=== PATIENT | male | born 1975 | race Caucasian/White ===

== ENCOUNTER 2024-11-25 12:26 | Outpatient (CLI) | payer BC, SELFPAY ==
--- NOTE | 2024-11-25 13:00 | MR_ITS ---
[address] [address] Phone:?[phone] Fax:?[phone] Referring Physician Information: Master Dawkins M.D. [id number] [id number] Phone:?[phone] Fax:?[phone] Patient:Gregory Phillip D.O.B:?1975 Sex:?Male Phone:? [facility] MRN:?[id number] Exam Date:?11/25/2024 EXAM: MRI OF THE RIGHT SHOULDER CLINICAL INFORMATION: The patient is a 49-year-old with right shoulder pain. Evaluate rotator cuff. PRIOR SURGERY: None reported. COMPARISON STUDIES: Comparison is made to prior radiographs dated 10/23/2024. TECHNICAL INFORMATION: Imaging was performed on a high-field, 1.5 Kiara MR scanner. Coronal proton-density, T2, and STIR imaging of the right shoulder was performed in addition to axial proton-density and T2 imaging. Sagittal proton- density and sagittal T2 imaging was also produced. FINDINGS: Articular/Extraarticular collections: Effusion: Mild to moderate. Subacromial/subdeltoid: There is moderate loculated fluid is seen within the subacromial/subdeltoid bursa, with low signal intensity debris, noted to best advantage on coronal series 5 image 11, axial series 4 image 19, and on sagittal series 9 image 8. The findings are in keeping with moderate bursitis, however the findings may also relate to bursal hemorrhage. Subcoracoid: No evidence for bursitis. Osseous structures: Proximal humerus: Increased fat-suppressed signal intensity can be seen involving the greater tuberosity region, in keeping with reactive edema or bony contusion. No well-defined fracture is seen. The findings may be related to the bursitis or bursal collection described above. No evidence for Hill-Sachs or reverse Hill-Sachs lesion is identified. Glenoid: No acute bony abnormality of the glenoid fossa or glenoid neck can be seen. Acromioclavicular joint: Mild. Coracoacromial arch: Acromion morphology: Type II. There is a potentially symptomatic os acromiale with moderate marrow edema within the acromion, seen to best advantage on coronal series 5 image 15 and on axial series 4 image 10. The findings may also relate to an acromial fracture. Clinical correlation is required. Acromiohumeral space: Moderately narrowed. Coracohumeral space: Within normal limits. Rotator cuff and deltoid: Supraspinatus: Moderate changes of supraspinatus tendinosis can be seen with partial-thickness superficial surface tearing and fraying involving up to 30% of the tendon thickness. No full-thickness tearing or retraction of the supraspinatus tendon can be seen. Strain of the supraspinatus muscle belly and myotendinous junction can be seen without evidence for atrophic change. Infraspinatus: Mild infraspinatus tendinosis can be seen. There is no evidence for full or partial-thickness tearing. No atrophic changes of the infraspinatus muscle belly are identified. Teres minor: No evidence for tendinosis, tearing, or associated muscle belly atrophy. Subscapularis: Mild subscapularis tendinosis can be seen. There is no evidence for full or partial-thickness tearing. No atrophic changes of the subscapularis muscle belly are noted. Deltoid: There is increased fat-suppressed signal intensity involving the lateral and anterior aspects of the deltoid musculature. The findings may relate to andi-based deltoid sprain but may also relate to myositis secondary to inflammatory changes from adjacent to subacromial bursitis. No discrete tearing of the deltoid is identified. Biceps tendon: The intra-articular and biceps sulcus portions of the biceps tendon are normal. There is no evidence for rupture, dislocation, or subluxation. Glenohumeral joint and labrum: Articular Cartilage: No definite chondral injuries along the articular surfaces of the glenohumeral articulation can be seen. No osteoarthritic changes are present. Labrum: The anterior, posterior, superior, and inferior portions of the labrum appear intact. No evidence for paralabral ganglion cyst formation can be seen. Capsular Soft Tissues: Nonspecific thickening of the capsular structures can be seen in the region of the axillary recess and rotator cuff interval. The findings may relate to changes of adhesive capsulitis. CONCLUSION: 1. Loculated, complex fluid collection seen within the subacromial/subdeltoid bursa, most in keeping with bursitis. Reactive bony changes are seen within the greater tuberosity and there are strain and/or myositis involving the lateral and anterior aspects of the deltoid muscle. Please see the descriptions above. 2. Tendinosis and partial-thickness superficial surface tearing of the supraspinatus tendon with additional mild infraspinatus and subscapularis tendinosis. 3. Potentially symptomatic os acromiale versus acromial fracture. 4. Nonspecific capsular thickening, possibly related to adhesive capsulitis. AEC Electronically signed on 11/25/2024 4:00:00 PM by Jono Taylor M.D.
== END 2024-11-25 12:27 | disposition home or self-care (01) ==
LOC: MRI 12:27
PROVIDERS: PCP Student in an Organized Health Care Education/Training Program; Visit Provider Orthopaedic Surgery
DX: M25.511 Pain in right shoulder (principal); M75.101 Unspecified rotator cuff tear or rupture of right shoulder, not specified as traumatic; M75.51 Bursitis of right shoulder; M25.611 Stiffness of right shoulder, not elsewhere classified
CPT/HCPCS: 73221

== ENCOUNTER 2024-12-10 13:41 | Outpatient (CLI) | payer BC, SELFPAY | END 2024-12-10 13:42 | disposition home or self-care (01) | LOC: NFLDREF 12-15 07:32 | PROVIDERS: PCP Student in an Organized Health Care Education/Training Program; Referring Provider Student in an Organized Health Care Education/Training Program; Visit Provider Orthopaedic Surgery | DX: M60.9 Myositis, unspecified (principal) | CPT/HCPCS: 82550; 86140 ==

== ENCOUNTER 2025-02-14 10:30 | Outpatient (RCR) | payer BC, SELFPAY ==
--- NOTE | 2024-11-19 14:42 | PT.OPE ---
[facility] Eval PT [facility] Out[facility] Eval Start: 11/19/24 08:41 Freq: Status: Active Protocol: Document 11/19/24 14:34 SHERIET (Rec: 11/19/24 14:42 CJRasheed [id number]) E-signed By Shukri Joyner PT Physical Therapy Outpatient Evaluation Insurance Information Recert Due Date 02/17/25 Insurance Name [employer],Workman 's Comp Insurance Information/Comments Work comp injury Medical Diagnosis M25.611 - Stiffness of right shoulder, not elsewhere classified M25.511 - Pain in right shoulder M75.01 - Adhesive capsulitis of right shoulder Treating Diagnosis M25.511 R shoulder pain Referring Master Oneal A Subjective Preferred Name Ed Subjective Pt presents today with complaints of R shoulder pain. This began after a work injury on 10/21 where he was pushing a 15-20 lb box on a shelf slightly above shoulder height. When he did this motion, he didn't feel much pain although onset of pain began about 2 hours later. Later that night pt felt like it locked up. Pt works at [employer]. 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 Prior to this, he injured his R shoulder a couple years ago and has been doing stretches about 3x/day for both his shoulders. He sleeps on his R shoulder typically although has been avoiding this d/t pain. No reports of numbness or tingling since after the first week of his injury. Pt has MRI scheduled on Monday. Pain Comments 2 up to a 7/10 His pain is achy currently. Pain is sharp when he stretches it. He points to the front of his shoulder for where he feels his pain. Current Work Status Promotional Representative Occupation [employer] Precautions Therapy Limitations/Systems Review Not Limited Objective Other/Pertinent Objective Shoulder ROM Flexion: 95(R), 122(L) Abduction: 90(R), 110(L) ER: 5(R), 40(L) IR: Sacrum (R) T8(L) Cervical ROM: Flexion: WNL Extension: 38 SB: 30(R), 22 (L) Rot: 55(R), 61(L) Strength - grossly 5/5 MMT on L with exceptions noted below Shoulder flexion: unable to test on R Shoulder IR/ER at neutral: * pain noted in lateral R shoulder with testing Shoulder IR/ER at 90: 4/5 MMT (L ER) Elbow flexion: 5/5 MMT (B), some pain noted in posterior shoulder on R Elbow extension: 5/5 MMT (B) some pain noted in bicep on R Empty can: unable to test on R - pt unable to elevate R arm, 4/5 MMT (L) Special tests: Dhillon-Dutch: positive R, minimally positive L Crossover: minimally positive L AC Compression: negative Whipple: positive R Palpation: pt reports pain with palpation to R LHBT Assessment Assessment/Impression Ed is a very pleasant 49 year old male who presents to our clinic for evaluation and treatment of R shoulder pain and mobility deficits. Pt presents with R shoulder ROM and strength deficits in all motions and limited due to pain. Pt demonstrates inability to perform shoulder abduction AROM as well as demonstrates positive empty can test on R and pain with ER at neutral and with shoulder abducted to 90. Pt's condition likely consistent of RC pathology and/or tear. He is also showing clear signs of adhesive capsulitis with significant limitations with ER and IR AROM/PROM this date. The nature of the pts condition was explained and all questions were answered to the pts satisfaction. Skilled PT services are medically necessary to address deficits and return patient to highest level of function. Pt is getting MRI on Monday and educated pt that this will help with adjusting the plan of care moving forward. Pt agrees with this plan. Printout of HEP was given for I completion and pt gives verbal understanding of each exercise. Co-Signed by Shukri Joyner DPT [id number] Primary Functional Limitations Lifting, reaching Plan of Care Rehabilitation Potential Fair Physical Therapy Goals STG (within 2-3 weeks) 1) Pt will initiate HEP without increased pain/ symptoms 2) Patient will demo increased shoulder flexion AAROM in supine to 140 deg for increased motion overhead. LTG (within 6-8 wks) 1) Pt will be indep with HEP for emt intermediate management of pain/symptoms. 2) Pt will demonstrate at least 120 deg shoulder elevation AROM with minimal end range pain for improved reaching overhead. 3) Pt will demonstrate shoulder strength at least 4+/ 5 in all planes for improved ability to lift/carry. 4) Pt will report at least 60% improvement in pain/symptoms since start of PT for return to PLOF. Treatment Plan/Direct Interventions Electrical Stimulation,Heat, Joint Mobilization,Manual Therapy,Neuromuscular Re-ed, Self-Care/Home Management, Therapeutic Activities, Therapeutic Exercises, Ultrasound Frequency/Duration 1-2/week for 6-8 weeks Patient Will Be Discharged From Therapy Completion of LTG(s),Skills Plateau,Independent w/HEP, Independently Progressing Evaluation Billing Untimed Code Treatment Minutes 40 PT Eval No Charge No Complexity Low Student Supervision Licensed PT Directed/Approved Treatment, Reviewed POC with Patient,Made Contact with Patient, Participated in Treatment Documentation Reviewed By Teletype Operator Yes Certification Information Initial Certification Date 11/19/24 Ending Certification Date 02/17/25 Provider Signature Required Yes Provider Signature Shows Agreement With POC & Medical Necessity Physician NPI Number Write NPI# Here Physician Comment/Change : Physician Signature & Date Requested Please Sign/Date Here
--- NOTE | 2025-01-03 12:07 | PT.OPDN ---
PT [facility] Out[facility] Daily Note PT [facility] Outpatient Daily Note Start: 11/19/24 08:41 Freq: Status: Active Protocol: Document 01/03/25 11:03 (Rec: 01/03/25 12:06 [email or web address]) E-signed By Jennifer Suarez DPT PT OP Daily Progress Note Visit Information Note Type Daily Note Visit Number 7 Physician Authorized e&t Visits Insurance Information Recert Due Date 02/17/25 Insurance Name [employer] Insurance Work comp injury Information/Comments Medical Diagnosis M25.611 - Stiffness of right shoulder, not elsewhere classified M25.511 - Pain in right shoulder M75.01 - Adhesive capsulitis of right shoulder Treating Diagnosis M25.511 R shoulder pain Referring Master Oneal Subjective Preferred Name Ed Subjective Ed has noticed improvement in motion with his right shoulder but still has tightness in neck especially when looking to the right. He has noticed slight numbness with sleeping on right shoulder but that improves with a change in position. Overall, Ed feels that he has made good improvement with PT but still has differences in motion and strength compared to left. He has been able to lift 30# at work to chest level but can't lift more than 5# overhead. Pain Comments 1.5-09/16 currently Date of Next 01/07/25 Physician Visit Home Exercise Home Exercise Access Code: [email or web address] Comments URL: [email or web address] Date: 01/03/2025 Prepared by: Jennifer Suarez Exercises - Circular Shoulder Pendulum with Table Support - 1 x daily - 7 x weekly - 1-2 min hold - Seated Scapular Retraction - 1-2 x daily - 7 x weekly - 10 reps - Seated Shoulder Flexion Towel Slide at Table Top - 1 -2 x daily - 7 x weekly - 15-20 reps - Seated Shoulder Abduction Towel Slide at Table Top - 1-2 x daily - 7 x weekly - 15-20 reps - Sidelying Shoulder External Rotation - 1 x daily - 7 x weekly - 1-3 sets - 10 reps - Sleeper Stretch - 1 x daily - 7 x weekly - 3 sets - 10 reps - Seated Shoulder External Rotation AAROM with Dowel - 1-2 x daily - 7 x weekly - 15-20 reps - Standing Shoulder Internal Rotation AAROM with Dowel - 1-2 x daily - 7 x weekly - 15-20 reps - Standing Shoulder Flexion AAROM with Dowel - 1 x daily - 7 x weekly - 3 sets - 10 reps - Shoulder extension with resistance - Neutral - 1 x daily - 3-4 x weekly - 2 sets - 20 reps - Shoulder Internal Rotation with Resistance - 1 x daily - 3-4 x weekly - 2 sets - 20 reps - Shoulder External Rotation with Anchored Resistance - 1 x daily - 3-4 x weekly - 2 sets - 20 reps - Standing Shoulder Horizontal Abduction with Resistance - 1 x daily - 7 x weekly - 3 sets - 10 reps Objective Other/Pertinent Shoulder ROM Objective Flexion: 95(R), 122(L); 01/03: 113(R) standing AROM Abduction: 90(R), 110(L); 01/03 99 (R) standing AROM ER: 5(R), 40(L); 01/03: ~25 (R) supine IR: Sacrum (R) T8(L); 01/03: T12 R/ T8 L Cervical ROM: at evaluation Flexion: WNL Extension: 38 SB: 30(R), 22 (L) Rot: 55(R), 61(L) Strength - grossly 5/5 MMT on L with exceptions noted below Shoulder flexion: unable to test on R Shoulder IR/ER at neutral: *pain noted in lateral R shoulder with testing Shoulder IR/ER at 90: 4/5 MMT (L ER) Elbow flexion: 5/5 MMT (B), some pain noted in posterior shoulder on R Elbow extension: 5/5 MMT (B) some pain noted in bicep on R Empty can: unable to test on R - pt unable to elevate R arm, 4/5 MMT (L) Special tests: Dhillon-Dutch: positive R, minimally positive L Crossover: minimally positive L AC Compression: negative Whipple: positive R Palpation: pt reports pain with palpation to R LHBT Patient Instructed Yes in Risks/Benefits Therapeutic Exercise Therapeutic Exercise 30 Minutes (minutes) Therapeutic Exercise UBE 4' (2 min ea forward/backward) : To Restore -Supine shoulder flexion AAROM w/ dowel 2 x 15 Functional Status - R ER in L SL: x 10 - Sleeper stretch: x 10 for 5 -Standing shoulder flexion AAROM w/ dowel 2 x 15 -Standing shoulder abduction AAROM w/ dowel 2 x 15 -Standing shoulder IR/ER with dowel 2 x 15 ea -Shoulder extensions with RTB 2 x 15 -Shoulder IR/ER with RTB x 15 ea side -CC Rows 20# 2 x 10 - TC for scapular retraction - wall slide/walk flexion and abduction: x 10 - abduction increased pain, pt instructed to continue with abduction table slide vs wall slide Manual Therapy Techniques Manual Therapy 15 Minutes (minutes) Manual Therapy STM performed to RIGHT levator scapulae, upper Techniques trapezius, and long head of the biceps tendon w/ trigger point release to bicep to reduce tissue tension and improve extensibility. Grade II-III STJ, GHJ mobilizations in all directions to diminish adhesions and facilitate motion. Noting continued tightness with AP mobs and springy end feel on right. Treatment Minutes Timed Code Treatment 45 Minutes Total Treatment Time 45 Billing Units Manual Therapy Units 1 Therapeutic Exercise 2 Units Assessment/Impression Assessment/ Ed is pleasant 49 year old male who presented with Impression right shoulder adhesive capsulitis. Ed has noticed improvement with motion during PT. He continues to be limited with flexion, ER, and abduction with the greatest restriction of abduction today. MT and exercises performed as listed above. Ed has progressed with PT treatment. Recommend continuing with skilled PT treatment to increase ROM and strength as well as postural corrections. Primary Functional Lifting, reaching Limitations Plan of Care Physical Therapy STG (within 2-3 weeks) Goals 1) Pt will initiate HEP without increased pain/symptoms - met 2) Patient will demo increased shoulder flexion AAROM in supine to 140 deg for increased motion overhead.- progressing with 122 in supine AAROM w/ dowel LTG (within 6-8 wks) 1) Pt will be indep with HEP for manager terminal management of pain/symptoms. 2) Pt will demonstrate at least 120 deg shoulder elevation AROM with minimal end range pain for improved reaching overhead. 3) Pt will demonstrate shoulder strength at least 4+/5 in all planes for improved ability to lift/carry. 4) Pt will report at least 60% improvement in pain/ symptoms since start of PT for return to PLOF. Daily Plan of Care Continue per POC Student Supervision Licensed PT Directed/Approved Treatment,Reviewed POC with Patient, Made Contact with Patient,Participated in Treatment Documentation Yes Reviewed By Grout Machine Tender
== END 2025-04-01 14:44 | disposition home or self-care (01) ==
PROVIDERS: PCP Student in an Organized Health Care Education/Training Program; Visit Provider Orthopaedic Surgery
DX: M25.611 Stiffness of right shoulder, not elsewhere classified (principal); M25.511 Pain in right shoulder; M75.01 Adhesive capsulitis of right shoulder
CPT/HCPCS: 97110; 97140; 97161